=== PATIENT | female | born 1955 | race African-American/Black ===

== ENCOUNTER 2016-09-08 14:27 | Emergency (ER) | payer MEDICAID, OTHER ==
[~2016-09-08] VITALS: Ht 167.6 cm; Wt 85.0 kg
[~2016-09-08 14:27] MED LIST: AMBIEN; LISINOPRIL; LORA-249; SIMVASTATIN; SOMA; XANAX
[2016-09-08] MEDS ORDERED: LORAZEPAM 0.5MG TABLET PO ONE (14:45)
[2016-09-08] MEDS ORDERED: GABAPENTIN 100MG CAPSULE PO ONE (15:30)
[2016-09-08 15:59] LABS: BASOPHILS % 0.4 % (0.0-2.0); EOSINOPHILS % 2.5 % (0.0-5.0); HEMATOCRIT. 30.8 % (36.0-48.0); HEMOGLOBIN. 10.2 g/dL (12.0-16.0); LYMPHOCYTES % 27.4 % (20.0-50.0); MEAN CORPUSCULAR HEMOGLOBIN 27.6 pg (28.0-32.0); MEAN CORPUSCULAR VOLUME 83.4 fL (81.0-99.0); MEAN PLATELET VOLUME 7.4 fl (7.4-10.4); MONOCYTES % 11.9 % (2.0-8.0); NEUTROPHILS % 57.8 % (40.0-76.0); PLATELET 212 x1000/uL (130-400); RED BLOOD CELL COUNT 3.69 mill/uL (4.2-5.4); RED CELL DISTRIBUTION WIDTH 13.4 % (11.6-14.6)
[2016-09-08 16:05] LABS: CHLORIDE 111 mEq/L (98-107)
[2016-09-08 16:07] LABS: CARBON DIOXIDE 26 mEq/L (21-32)
[2016-09-08 16:13] LABS: ETHANOL BLOOD < 10 mg/dL
[2016-09-08 16:15] LABS: TROPONIN I < 0.02 ng/mL (0.00-0.04)
[2016-09-08] MEDS ORDERED: MORPHINE SULFATE 2 MG/ML CPJ (NOT FOR IM USE) IV ONE ×2 (16:15→18:45)
[2016-09-08 17:40] LABS: PARTIAL THROMBOPLASTIN TIME 24.1 sec (24.0-34.0); PROTHROMBIN TIME 10.7 sec
[2016-09-08 18:40] LABS: CLARITY URINE CLEAR (CLEAR); COLOR URINE YELLOW (YELLOW); GLUCOSE URINE NEGATIVE (NEGATIVE); KETONES URINE NEGATIVE (NEGATIVE); LEUKOCYTE ESTERASE URINE 2+ (NEGATIVE); NITRITE URINE NEGATIVE (NEGATIVE); OCCULT BLOOD URINE NEGATIVE (NEGATIVE); PROTEIN URINE TRACE (NEGATIVE); SPECIFIC GRAVITY URINE 1.019 (1.005-1.030); UROBILINOGEN URINE 0.2 E.U./dL (0.2-1.0)
[2016-09-08 18:51] LABS: *AMPHETAMINES SCREEN URINE NEGATIVE (NEGATIVE); *BARBITURATES SCREEN URINE NEGATIVE (NEGATIVE); *BENZODIAZEPINES SCREEN URINE PRESUMTIVE POSITIVE (NEGATIVE); *COCAINE SCREEN URINE NEGATIVE (NEGATIVE); CANNABINOID URINE SCREEN NEGATIVE (NEGATIVE); METHADONE URINE SCREEN NEGATIVE (NEGATIVE); OPIATES URINE SCREEN PRESUMTIVE POSITIVE (NEGATIVE); PHENCYCLIDINE URINE SCREEN NEGATIVE (NEGATIVE)
[2016-09-08] MEDS ORDERED: SULFAMETHOXAZOLE/TRIMETHOPRIM 800/160MG TABLET PO ONE (19:30)
[2016-09-08 19:32] VITALS: BP 155/83
== END 2016-09-08 20:08 | disposition home or self-care (01) ==
LOC: ER 14:35
DX: M94.0 Chondrocostal junction syndrome [Tietze] (principal); E86.0 Dehydration; E11.65 Type 2 diabetes mellitus with hyperglycemia; E87.8 Other disorders of electrolyte and fluid balance, not elsewhere classified; N39.0 Urinary tract infection, site not specified; R80.9 Proteinuria, unspecified; N17.0 Acute kidney failure with tubular necrosis; F41.9 Anxiety disorder, unspecified; M19.90 Unspecified osteoarthritis, unspecified site; I10 Essential (primary) hypertension; I25.2 Old myocardial infarction; I26.99 Other pulmonary embolism without acute cor pulmonale
CPT/HCPCS: 36415; 71010; 72070; 72100; 73502; 80053; 80305; 81001; 83036; 83690; 83880; 84484; 85025; 85610; 85651; 85730; 93005; 96374; 96376; 99285; G0482; J2270; Z7610

== ENCOUNTER 2017-11-30 17:37 | Inpatient (IN) | payer MEDICAID ==
[~2017-11-30] VITALS: Ht 165.1 cm; Wt 107.0 kg
[2017-11-30] MEDS ORDERED: MORPHINE SULFATE 4 MG/ML CPJ (NOT FOR IM USE) IV STA (18:16)
[2017-11-30] MEDS ORDERED: ONDANSETRON HCL 4MG/2ML VIAL IV STA (18:16)
[2017-11-30] MEDS ORDERED: KETOROLAC 30MG/ML VIAL IV STA (18:16)
[2017-11-30 19:08] LABS: BASOPHILS % 0.7 % (0.0-2.0); HEMATOCRIT. 28.7 % (36.0-48.0); HEMOGLOBIN. 9.3 g/dL (12.0-16.0); LYMPHOCYTES % 25.1 % (20.0-50.0); MEAN CORPUSCULAR HEMOGLOBIN 28.1 pg (28.0-32.0); MEAN CORPUSCULAR VOLUME 86.7 fL (81.0-99.0); MEAN PLATELET VOLUME 8.2 fl (7.4-10.4); NEUTROPHILS % 60.2 % (40.0-76.0); PLATELET 239 x1000/uL (130-400); RED BLOOD CELL COUNT 3.31 mill/uL (4.2-5.4)
[2017-11-30 19:14] LABS: CHLORIDE 113 mEq/L (98-107)
[2017-11-30 19:18] LABS: ETHANOL BLOOD < 10 mg/dL
[2017-11-30 19:19] LABS: D-DIMER 0.33 mg/L FEU (<0.50); PARTIAL THROMBOPLASTIN TIME 24.1 sec (23.4-31.0); PROTHROMBIN TIME 10.1 sec (9.1-11.1)
[2017-11-30] MEDS ORDERED: ASPIRIN 325MG EC TABLET PO ONE (20:00)
[2017-11-30 20:02] LABS: CLARITY URINE CLEAR (CLEAR); COLOR URINE YELLOW (YELLOW); KETONES URINE NEGATIVE (NEGATIVE); LEUKOCYTE ESTERASE URINE TRACE (NEGATIVE); NITRITE URINE NEGATIVE (NEGATIVE); OCCULT BLOOD URINE NEGATIVE (NEGATIVE); PROTEIN URINE NEGATIVE (NEGATIVE); SPECIFIC GRAVITY URINE 1.023 (1.005-1.030); UROBILINOGEN URINE 0.2 E.U./dL (0.2-1.0)
[2017-11-30 20:27] LABS: *AMPHETAMINES SCREEN URINE NEGATIVE (NEGATIVE); *BARBITURATES SCREEN URINE NEGATIVE (NEGATIVE); *BENZODIAZEPINES SCREEN URINE PRESUMTIVE POSITIVE (NEGATIVE); *COCAINE SCREEN URINE NEGATIVE (NEGATIVE); CANNABINOID URINE SCREEN NEGATIVE (NEGATIVE); METHADONE URINE SCREEN NEGATIVE (NEGATIVE); OPIATES URINE SCREEN PRESUMTIVE POSITIVE (NEGATIVE); PHENCYCLIDINE URINE SCREEN NEGATIVE (NEGATIVE)
[2017-11-30] MEDS ORDERED: NITROGLYCERIN 0.4MG TABLET SL SL PRN (22:00)
[2017-11-30] MEDS ORDERED: ONDANSETRON 4MG ODT PO PRN (22:00)
[2017-11-30] MEDS ORDERED: CLONIDINE 0.1MG TABLET PO PRN (22:00)
[2017-11-30] MEDS ORDERED: ACETAMINOPHEN 325MG TABLET PO PRN (22:00)
[2017-11-30] MEDS ORDERED: NA PHOS,M-B/NA PHOS,DI-BA ENEMA 118ML PR PRN (22:00)
[2017-11-30] MEDS ORDERED: DEXTROSE 50% WATER 50ML SYRINGE IV PRN (22:00)
[2017-11-30] MEDS ORDERED: GUAIFENESIN 200MG/10ML SUGAR FREE UDC PO PRN (22:00)
[2017-11-30] MEDS ORDERED: IPRATROPIUM/ALBUTEROL 0.5-3(2.5)MG/3ML NEB INH PRN (22:00)
[2017-11-30] MEDS ORDERED: LORAZEPAM 0.5MG TABLET PO PRN (22:00)
[2017-11-30] MEDS ORDERED: DIPHENHYDRAMINE 50MG/ML VIAL IV PRN (22:00)
[2017-11-30] MEDS ORDERED: ZOLPIDEM TARTRATE 5MG TABLET PO PRN (22:00)
[2017-11-30] MEDS ORDERED: MAGNESIUM/ALUMINUM HYDROXIDE/SIMETHICONE 30ML UDC PO PRN (22:00)
[2017-11-30] MEDS ORDERED: DOCUSATE SODIUM 100MG CAPSULE PO PRN (22:00)
[2017-11-30 22:38] LABS: FOLIC ACID (FOLATE) SERUM 6.5 ng/mL (>5.38)
[2017-11-30 23:08] LABS: CREATINE KINASE 83 IU/L (26-192)
[2017-11-30 23:10] LABS: CREATINE KINASE MB FRACTION < 1.0 ng/mL (0.5-3.6)
[2017-12-01] VITALS (8 sets, daily range): BP systolic 138–215; BP diastolic 54–115
[2017-12-01] MEDS ORDERED: APIX2.5T MT (00:42)
[2017-12-01] MEDS ORDERED: METF500T6 MT (00:42)
[2017-12-01] MEDS: KETOROLAC 15MG/ML VIAL IV PRN ×3 (01:17→15:03)
[2017-12-01] MEDS: SUCRALFATE 1 G/10 ML UDC PO SCH ×2 (06:48→12:10)
[2017-12-01] MEDS: BLOOD SUGAR DIAGNOSTIC STRIP TEST SCH ×2 (06:49→12:10)
[2017-12-01 07:55] LABS: CREATINE KINASE 82 IU/L (26-192)
[2017-12-01 08:03] LABS: CREATINE KINASE MB FRACTION < 1.0 ng/mL (0.5-3.6)
[2017-12-01] MEDS ORDERED: ENOXAPARIN 30MG/0.3ML SYR SUBCUT SCH (09:00)
[2017-12-01] MEDS ORDERED: METOPROLOL TARTRATE 25MG TABLET PO SCH (09:00)
[2017-12-01] MEDS ORDERED: ASPIRIN 325MG EC TABLET PO SCH (09:00)
[2017-12-01] MEDS ORDERED: LISINOPRIL 20MG TABLET PO SCH (09:00)
[2017-12-01] MEDS ORDERED: FAMOTIDINE 20MG TABLET PO SCH (09:00)
[2017-12-01] MEDS: INSULIN LISPRO 100 UNITS/ML SUBCUT SCH ×2 (10:36→12:12)
== END 2017-12-01 18:05 | disposition home or self-care (01) | DRG 198 ==
LOC: ER 17:53 → 6WST 21:40 → EDBEDREQTM 21:44 → EDBEDREQ 21:44 → ENRESERV 22:16
PROVIDERS: ADMIT Internal Medicine; ATTEND Internal Medicine
DX: R07.89 Other chest pain (principal); I25.2 Old myocardial infarction; E87.0 Hyperosmolality and hypernatremia; E44.1 Mild protein-calorie malnutrition; I10 Essential (primary) hypertension; E11.9 Type 2 diabetes mellitus without complications; D63.8 Anemia in other chronic diseases classified elsewhere; F41.9 Anxiety disorder, unspecified; M71.20 Synovial cyst of popliteal space [Baker], unspecified knee; M19.90 Unspecified osteoarthritis, unspecified site; Z86.718 Personal history of other venous thrombosis and embolism; Z76.5 Malingerer [conscious simulation]; Z86.711 Personal history of pulmonary embolism; Z85.89 Personal history of malignant neoplasm of other organs and systems; Z79.899 Other long term (current) drug therapy; Z68.39 Body mass index [BMI] 39.0-39.9, adult
CPT/HCPCS: 36415; 71045; 74176; 78582; 80053; 80061; 80305; 81003; 82550; 82553; 82607; 82746; 82962; 83036; 83540; 83550; 83690; 83880; 84484; 85025; 85379; 85610; 85730; 93005; 93970; 96374; 96375; 99285; A9558; G0482; J1650; J1815; J1885; J2270; J2405

== ENCOUNTER 2018-01-07 17:45 | Emergency (ER) | payer MEDICAID ==
[~2018-01-07] VITALS: Ht 154.9 cm; Wt 98.0 kg
[~2018-01-07 17:45] MED LIST changes: -AMBIEN; +APIX2.5T MT; +CLIN300C11 MT; +GABA-290 MT; +LISI40TA4 PO; -LISINOPRIL; -LORA-249; +METF500T6 MT; +S350 PO; +SERT100T PO; +SIMV40TA5 PO; -SIMVASTATIN; -SOMA; -XANAX; +ZOLP10TA2 PO
[2018-01-07 18:06] VITALS: BP 156/88
== END 2018-01-07 20:00 | disposition left against medical advice (07) ==
LOC: ER 17:45
DX: M79.604 Pain in right leg (principal); Z53.21 Procedure and treatment not carried out due to patient leaving prior to being seen by health care provider

== ENCOUNTER 2019-07-30 18:18 | Emergency (ER) | payer MEDICARE, MEDICAID ==
[~2019-07-30] VITALS: Ht 170.2 cm; Wt 91.0 kg
[~2019-07-30 18:18] MED LIST changes: +CARI350T28 PO; +METF-414 MT; -METF500T6 MT; -S350 PO; +SIMV-46 PO; -SIMV40TA5 PO
[2019-07-30] MEDS ORDERED: EPINEPHRINE 0.1MG/ML (1:10,000) 10ML SYR ONE ×2 (18:42→18:58)
[2019-07-30] MEDS ORDERED: SODIUM BICARBONATE 8.4% 1 MEQ/ML 50ML SYR IV ONE (18:47)
[2019-07-30] MEDS ORDERED: DOPAMINE 400MG/250ML PREMIX 250 ML IV ONE ×3 (19:08→23:15)
[2019-07-30] MEDS ORDERED: PROPOFOL 10MG/ML 100ML 100 ML IV SCH (19:30)
[2019-07-30] MEDS ORDERED: EPINEPHRINE 1 MG in SODIUM CHLORIDE 0.9% 249 ML IV SCH ×6 (20:00→23:00)
[2019-07-30 20:45] LABS: HEMATOCRIT. 30.4 % (36.0-48.0); HEMOGLOBIN. 8.3 g/dL (12.0-16.0); MEAN CORPUSCULAR HEMOGLOBIN 27.4 pg (28.0-32.0); MEAN CORPUSCULAR VOLUME 100.5 fL (81.0-99.0); MEAN PLATELET VOLUME 7.7 fl (7.4-10.4); PLATELET 288 x1000/uL (130-400); RED BLOOD CELL COUNT 3.02 mill/uL (4.2-5.4); RED CELL DISTRIBUTION WIDTH 15.6 % (11.6-14.6)
[2019-07-30 20:52] LABS: CLARITY URINE TURBID (CLEAR); COLOR URINE YELLOW (YELLOW); INR 1.3; KETONES URINE NEGATIVE (NEGATIVE); LEUKOCYTE ESTERASE URINE NEGATIVE (NEGATIVE); NITRITE URINE NEGATIVE (NEGATIVE); OCCULT BLOOD URINE NEGATIVE (NEGATIVE); PROTEIN URINE 3+ (NEGATIVE); PROTHROMBIN TIME 14.3 sec (9.6-11.0); SPECIFIC GRAVITY URINE 1.017 (1.005-1.030); UROBILINOGEN URINE 0.2 E.U./dL (0.2-1.0)
[2019-07-30 20:55] LABS: CHLORIDE 109 mEq/L (98-107)
[2019-07-30 21:00] LABS: ETHANOL BLOOD < 10 mg/dL
[2019-07-30 21:02] LABS: PLATELET ESTIMATE NORMAL
[2019-07-30 21:06] LABS: CANNABINOID URINE SCREEN NEGATIVE (NEGATIVE); METHADONE URINE SCREEN NEGATIVE (NEGATIVE); OPIATES URINE SCREEN PRESUMTIVE POSITIVE (NEGATIVE); PHENCYCLIDINE URINE SCREEN NEGATIVE (NEGATIVE)
[2019-07-30 21:07] LABS: *AMPHETAMINES SCREEN URINE NEGATIVE (NEGATIVE); *BARBITURATES SCREEN URINE NEGATIVE (NEGATIVE); *BENZODIAZEPINES SCREEN URINE PRESUMTIVE POSITIVE (NEGATIVE); *COCAINE SCREEN URINE NEGATIVE (NEGATIVE)
[2019-07-30] MEDS ORDERED: PHENYLEPHRINE 10 MG in DEXT 5% WATER 249 ML IV SCH (21:30)
[2019-07-30] MEDS ORDERED: PHENYLEPHRINE 10 MG in DEXT 5% WATER 249 ML IV NR (21:33)
[2019-07-31] MEDS ORDERED: PIPERACILLIN/TAZOBACTAM 3.375GM/50ML PREMIX IV SCH
[2019-07-31] MEDS ORDERED: VASOPRESSIN 10 UNIT in SODIUM CHLORIDE 0.9% 99.5 ML IV SCH ×2 (00:45→01:30)
[2019-07-31] MEDS ORDERED: PHENYLEPHRINE 10 MG in DEXT 5% WATER 249 ML IV SCH (00:45)
[2019-07-31 00:50] VITALS: BP 50/22
[2019-07-31] MEDS ORDERED: VANCOMYCIN 1 G PREMIX 200 ML IV SCH (01:00)
== END 2019-07-31 02:58 | disposition expired ==
LOC: ER 18:18 → EDBEDREQ 23:21 → EDBEDREQTM 23:21 → ER 07-31 02:58 → CANBEDREQ 07-31 03:13
DX: I46.9 Cardiac arrest, cause unspecified (principal); R06.02 Shortness of breath; R41.0 Disorientation, unspecified; I12.0 Hypertensive chronic kidney disease with stage 5 chronic kidney disease or end stage renal disease; I50.9 Heart failure, unspecified; E11.9 Type 2 diabetes mellitus without complications; Z85.9 Personal history of malignant neoplasm, unspecified; Z79.899 Other long term (current) drug therapy; Z20.828 Contact with and (suspected) exposure to other viral communicable diseases
CPT/HCPCS: 36415; 71045; 80053; 80305; 80320; 81003; 83605; 83690; 83880; 84145; 84484; 85025; 85610; 86850; 86900; 86901; 87040; 87077; 87086; 87635; 87804; 92950; 93005; 94003; 94660; 96374; 96375; 99291; J1265; J2370; J3490; J7050; J7060; G0480